=== PATIENT | female | born 1970 | race Caucasian/White ===

== ENCOUNTER 2017-02-09 08:15 | Emergency (ER) | payer SELFPAY ==
[2017-02-09 08:25] VITALS: RESP 16; TEMP 98.6
--- NOTE | 2017-02-09 08:47 | EDPHY ---
H & P Time Seen by Provider: 02/09/17 08:26 HPI/ROS: CHIEF COMPLAINT: Suprapubic abdominal pain HISTORY OF PRESENT ILLNESS: Patient has a history of a uterine or cervical cerclage as well as previous history for bleeding from an ovarian cyst. She had a 9 years ago. The patient presents with lower abdominal and suprapubic pain that started about 2 and half weeks ago. She saw [facility] at that time and had a pelvic exam and told it was normal, had STD testing which was negative. She saw her primary care physician Dr. Brady 2 days later and had what she was told was blood in her urine and was treated with an oral antibiotic for 5 days for possible UTI, didn't change symptoms. She saw Dr. Martines from Urology a week ago on Friday with no definitive diagnosis and has a CT scan abdomen and pelvis scheduled for this coming Friday. The symptoms have been intermittent and persistent but not associated with vomiting or diarrhea, not associated with urinary symptoms or vaginal bleeding or discharge. They are not better worse with anything but over the past 24 hours have become worse. Does not radiate. REVIEW OF SYSTEMS: Eye: no change in vision ENT: no sore throat Cardiac: no chest pain Pulmonary: no cough or SOB Abdomen: HPI Musculoskeletal: no back pain or injury or recent trauma Skin: no rash Neuro: no headache Constitutional: no fever : no urinary symptoms A comprehensive 10 point review of systems is otherwise negative aside from elements mentioned in the history of present illness. PAST MEDICAL HISTORY: x1 Social history: 3 , 2 living children General Appearance: Alert and conversant, cooperative. Eyes: No scleral icterus. ENT, Mouth: Normal mucous membranes. Respiratory: Normal respiratory effort, breath sounds equal, lungs are clear to auscultation. Cardiovascular: Regular rate and rhythm. Gastrointestinal: Some mild bilateral lower abdominal tenderness without rebound or guarding, bowel sounds present. No hernia identified. Neurological: Alert and oriented x3. Normally conversant. Face symmetric, normal movement and sensation in all extremities. Skin: Warm and dry, no rashes. Musculoskeletal: No peripheral edema and no joint swelling. Psychiatric: Not agitated. Emergency Department course/MDM: Plan for labs and CT abdomen and pelvis. Urine culture from her visit to [facility] was negative. Patient has already had pelvic exam, and urology evaluation for this pain. 911: Discussed with Dr. Brady. 944: CT per Dr. English shows bladder thickening and some ureteral enhancement. Otherwise negative. UA shows 5-10 white blood cells and trace leukocyte esterase. Will empirically treat for UTI. 1006: Results discussed in detail with patient's primary care physician Dr. Brady, plan to rx UTI and pyridium, urology and PCP followup. He will call in the pyridium and follow up on the urine culture, facilitate urology follow- up. Results and plan discussed with patient in detail, she is in agreement. Smoking Status: Never smoked Constitutional: Initial Vital Signs Temperature (C) 37.0 C 02/09/17 08:19 Heart Rate 65 02/09/17 08:19 Respiratory Rate 16 02/09/17 08:19 Blood Pressure 134/90 H 02/09/17 08:19 O2 Sat (%) 99 02/09/17 08:19 O2 Delivery Mode Room Air Allergies/Adverse Reactions: codeine Allergy (Verified 02/09/17 08:17) Home Medications: Medication Instructions Recorded Cephalexin [Keflex] 500 mg PO TID #28 cap 02/09/17 Ortho-Cyclen 02/09/17 Medical Decision Making - Diagnostics Imaging Results: Imaging Impressions Abdomen CT 02/09/17 09:07 Impression: 1. Urothelial enhancement in the ureters with apparent mild bladder wall thickening suggesting a urinary tract infection. 2. Indeterminate hyperenhancing structure in the dome of the liver which could represent a transient hepatic attenuation difference, flash filling hemangioma, adenoma, or other etiology. MRI abdomen with contrast is recommended for further evaluation, although characterization of lesions near the diaphragm can be difficult secondary to motion. 3. Adnexal varices which can be seen in asymptomatic patients, as well as patients with pelvic congestion syndrome. 4. Additional findings, as above. Findings discussed with Simon Rodrigues MD on February 09, 2017 at 0942 hours. Differential Diagnosis: Differential considered including but not limited to UTI, ectopic, diverticulitis, appendicitis, bowel obstruction - Data Points Laboratory Results: Laboratory Results 02/09/17 08:35 02/09/17 08:35 02/09/17 02/09/17 02/09/17 08:57 08:35 08:35 WBC RBC Hgb Hct MCV MCH MCHC RDW Plt Count MPV Neut % (Auto) Lymph % (Auto) [place] % (Auto) Eos % (Auto) Baso % (Auto) Nucleat RBC Rel Count Absolute Neuts (auto) Absolute Lymphs (auto) Absolute Monos (auto) Absolute Eos (auto) Absolute Basos (auto) Absolute Nucleated RBC Immature Gran % Immature Gran # Sodium 137 mEq/L mEq/L (134-144) Potassium 4.5 mEq/L mEq/L (3.5-5.2) Chloride 102 mEq/L mEq/L (97-110) Carbon Dioxide 23 mEq/l mEq/l (22-31) Anion Gap 12 mEq/L mEq/L (8-16) BUN 8 mg/dL mg/dL (7-23) Creatinine 0.9 mg/dL mg/dL (0.6-1.0) Estimated GFR > 60 Glucose 86 mg/dL mg/dL (70-100) Calcium 9.6 mg/dL mg/dL (8.5-10.4) Total Bilirubin 0.9 mg/dL mg/dL (0.1-1.4) Conjugated Bilirubin 0.2 mg/dL mg/dL (0.0-0.5) Unconjugated Bilirubin 0.7 mg/dL mg/dL (0.0-1.1) AST 55 IU/L H IU/L (14-46) ALT 33 IU/L IU/L (9-52) Alkaline Phosphatase 47 IU/L IU/L (38-126) Total Protein 7.5 g/dL g/dL (6.3-8.2) Albumin 4.7 g/dL g/dL (3.5-5.0) Lipase 124 IU/L IU/L (23-300) Beta HCG, Qual NEGATIVE Specimen Hemolysis 125 Urine Color PALE YELLOW Urine Appearance CLEAR Urine pH 8.0 H (5.0-7.5) Ur Specific Center 1.001 L (1.002-1.030) Urine Protein NEGATIVE (NEGATIVE) Urine Ketones NEGATIVE (NEGATIVE) Urine Blood 2+ H (NEGATIVE) Urine Nitrate NEGATIVE (NEGATIVE) Urine Bilirubin NEGATIVE (NEGATIVE) Urine Urobilinogen NEGATIVE EU EU (0.2-1.0) Ur Leukocyte Esterase TRACE H (NEGATIVE) Urine RBC 1-3 /hpf /hpf (0-3) Urine WBC 5-10 /hpf H /hpf (0-3) Ur Epithelial Cells TRACE /lpf /lpf (NONE-1+) Urine Mucus TRACE /lpf /lpf (NONE-1+) Urine Glucose NEGATIVE (NEGATIVE) 02/09/17 08:35 WBC 7.93 10^3/uL 10^3/uL (3.80-9.50) RBC 4.42 10^6/uL 10^6/uL (4.18-5.33) Hgb 14.7 g/dL g/dL (12.6-16.3) Hct 42.4 % % (38.0-47.0) MCV 95.9 fL fL (81.5-99.8) MCH 33.3 pg pg (27.9-34.1) MCHC 34.7 g/dL g/dL (32.4-36.7) RDW 11.7 % % (11.5-15.2) Plt Count 234 10^3/uL 10^3/uL (150-400) MPV 11.0 fL fL (8.7-11.7) Neut % (Auto) 59.9 % % (39.3-74.2) Lymph % (Auto) 32.2 % % (15.0-45.0) [place] % (Auto) 4.7 % % (4.5-13.0) Eos % (Auto) 1.5 % % (0.6-7.6) Baso % (Auto) 1.3 % % (0.3-1.7) Nucleat RBC Rel Count 0.0 % % (0.0-0.2) Absolute Neuts (auto) 4.76 10^3/uL 10^3/uL (1.70-6.50) Absolute Lymphs (auto) 2.55 10^3/uL 10^3/uL (1.00-3.00) Absolute Monos (auto) 0.37 10^3/uL 10^3/uL (0.30-0.80) Absolute Eos (auto) 0.12 10^3/uL 10^3/uL (0.03-0.40) Absolute Basos (auto) 0.10 10^3/uL 10^3/uL (0.02-0.10) Absolute Nucleated RBC 0.00 10^3/uL 10^3/uL (0-0.01) Immature Gran % 0.4 % % (0.0-1.1) Immature Gran # 0.03 10^3/uL 10^3/uL (0.00-0.10) Sodium Potassium Chloride Carbon Dioxide Anion Gap BUN Creatinine Estimated GFR Glucose Calcium Total Bilirubin Conjugated Bilirubin Unconjugated Bilirubin AST ALT Alkaline Phosphatase Total Protein Albumin Lipase Beta HCG, Qual Specimen Hemolysis Urine Color Urine Appearance Urine pH Ur Specific Center Urine Protein Urine Ketones Urine Blood Urine Nitrate Urine Bilirubin Urine Urobilinogen Ur Leukocyte Esterase Urine RBC Urine WBC Ur Epithelial Cells Urine Mucus Urine Glucose Departure - Departure Disposition: Home, Routine, Self-Care Clinical Impression: Cystitis Urinary tract infection Qualifiers: Urinary tract infection type: site unspecified Hematuria presence: without hematuria Qualified Code(s): N39.0 - Urinary tract infection, site not specified Condition: Good Instructions: Phenazopyridine (By mouth), Urinary Tract Infection in Children ( ED) Referrals: DOMINIQUE BRADY [Non Staff Provider (MD)] - As per Instructions Jose E Martines MD [Medical Doctor] - As per Instructions Prescriptions: Cephalexin [Keflex] 500 mg PO TID #28 cap
[2017-02-09 08:54] LABS: % IMMATURE GRANULYOCYTES 0.4 % (0.0-1.1); ABSOLUTE IMMATURE GRANULOCYTES 0.03 10^3/uL (0.00-0.10); ADD DIFF? NO; ADD MORPH? NO; ATYPICAL LYMPHOCYTE FLAG 0 (0-99); FRAGMENT RBC FLAG 0 (0-99); HEMATOCRIT 42.4 % (38.0-47.0); HEMOGLOBIN 14.7 g/dL (12.6-16.3); LEFT SHIFT FLG 0 (0-99); LIPEMIA HEMOLYSIS FLAG 90 (0-99); MEAN CELL HEMOGLOBIN 33.3 pg (27.9-34.1); MEAN CELL HEMOGLOBIN CONCENTR. 34.7 g/dL (32.4-36.7); MEAN CELL VOLUME 95.9 fL (81.5-99.8); RED BLOOD CELL COUNT 4.42 10^6/uL (4.18-5.33); RED CELL DISTRIBUTION WIDTH 11.7 % (11.5-15.2)
[2017-02-09 08:59] LABS: ADD SCAN? NO
[2017-02-09 09:00] LABS: PLATELET CLUMPS FLAG 0 (0-99); PLATELET COUNT 234 10^3/uL (150-400)
[2017-02-09 09:03] LABS: ALANINE AMINOTRANSFERASE 33 IU/L (9-52); ALBUMIN 4.7 g/dL (3.5-5.0); ALKALINE PHOSPHATASE 47 IU/L (38-126); ANION GAP 12 mEq/L (8-16); ASPARTATE AMINOTRANSFERASE 55 IU/L (14-46); BILIRUBIN,TOTAL 0.9 mg/dL (0.1-1.4); BILIRUBIN-CONJUGATED 0.2 mg/dL (0.0-0.5); BILIRUBIN-UNCONJUGATED 0.7 mg/dL (0.0-1.1); CALCIUM 9.6 mg/dL (8.5-10.4); CARBON DIOXIDE 23 mEq/l (22-31); CHLORIDE 102 mEq/L (97-110); CREATININE 0.9 mg/dL (0.6-1.0); GLOMERULAR FILTRATION RATE > 60; GLUCOSE 86 mg/dL (70-100); POTASSIUM 4.5 mEq/L (3.5-5.2); SODIUM 137 mEq/L (134-144); SPECIMEN HEMOLYSIS 125; TOTAL PROTEIN 7.5 g/dL (6.3-8.2)
[2017-02-09 09:07] LABS: COLOR PALE YELLOW; LEUKOCYTE ESTERASE,URINE TRACE (NEGATIVE); NITRITE,URINE NEGATIVE (NEGATIVE)
[2017-02-09 09:16] LABS: MUCUS TRACE /lpf (NONE-1+)
[2017-02-09] MEDS ORDERED: IOPAMIDOL (ISOVUE-300) 100 ML BTL ONE (09:16)
[2017-02-09 10:24] VITALS: BP 150/94; PULSE 60; O2SAT 96
== END 2017-02-09 10:24 | disposition home or self-care (01) ==
DX: N30.90 Cystitis, unspecified without hematuria (principal); B96.20 Unspecified Escherichia coli [E. coli] as the cause of diseases classified elsewhere
CPT/HCPCS: Q9967